=== PATIENT | male | born 1950 | race Caucasian/White ===

== ENCOUNTER 2016-02-22 09:41 | Outpatient (CLI) | payer MEDICAID, SELFPAY ==
--- NOTE | 2016-02-12 10:33 | RAD_ITS ---
STUDY: X-RAY CHEST REASON FOR EXAM: Male, 65 years old. Pacemaker in situ. TECHNIQUE: PA and lateral views of the chest. COMPARISON: None. FINDINGS: There is a left-sided cardiac pacemaker with its leads overlying the right atrium and right ventricle. There is no pneumothorax. The lungs are mildly hyperexpanded. There is no focal mass or infiltrate. There is no demonstrated pleural abnormality. Normal size heart. Normal mediastinum and leonora. Normal visualized pulmonary arteries. There is mild atherosclerotic calcification of the aortic arch with tortuosity. There are diffuse degenerative changes of the visualized thoracic spine. Normal visualized ribs, clavicles, and shoulders. There is no demonstrated abnormality of the visualized soft tissue structures of the upper abdomen. RAD/Chest PA and Lateral IMPRESSION: 1. Left-sided cardiac pacemaker without pneumothorax. 2. No acute cardiopulmonary disease. Electronically Signed: Bill Kincaid DO at 11:07 EST Tel [phone], Service support [phone],
[2016-02-12 11:50] LABS: Hemoglobin 15.5 g/dl (13.0-16.5); Mean Corp Hgb Conc 33.7 g/gl (32-36); Mean Platelet Vol. 11.5 fl (6.2-12.0); Platelet Count 221 K/mm3 (150-450); RBC Distribution Width CV 13.6 % (11.6-14.6); RBC Distribution Width SD 46.1 fl (35.1-43.9)
[2016-02-12 11:57] LABS: Scan Indicated on CBC? Y/N NO
[2016-02-12 11:58] LABS: Color, Urine Yellow (Yellow); Glucose, Dipstick 1000 mg/dl (Normal); Ketone-Dipstick Negative (Negative); Leukocyte Esterase-Dipstick Negative /ul (Negative); Nitrite-Dipstick Negative (Negative); Occult Blood-Urine Negative /ul (Negative); Protein-Dipstick Negative (Negative); Specific Gravity, Urine 1.015 (1.002-1.030); Urine Bilirubin Dipstick Negative (Negative); Urine Clarity Clear (Clear); Urine Urobilinogen Normal (Normal)
[2016-02-12 12:12] LABS: Prothrombin Time (Protime)PT. 34.2 SECONDS (11.7-14.9)
[2016-02-12 12:15] LABS: International Normalized Ratio 3.5
[2016-02-12 12:57] LABS: Anion Gap 6 (5-15); BUN 15 mg/dL (7-18); BUN/Creat Ratio 13.8 RATIO (10-20); Chloride 99 mmol/L (98-107); Creatinine, Serum 1.09 mg/dL (0.70-1.30); EST Glomerular Filtration Rate 72 mL/min (>60); Est Glom Filt Rate - Afr Amer 88 mL/min (>60); Glucose 234 mg/dL (70-110); Potassium 4.6 mmol/L (3.5-5.1); Sodium Level 135 mmol/L (136-145)
[2016-02-19 13:53] VITALS: BMI 28.3
[2016-02-22 10:19] LABS: Prothrombin Time Fingerstick 11.9 SEC (11.9-14.4)
--- NOTE | 2016-02-22 20:24 | OP_ITS ---
DATE OF SERVICE: 02/22/2016 PROCEDURE: Pacemaker generator change out. INDICATIONS: Sick sinus syndrome, end of life replacement index. The patient is a 65-year-old man with a history of pacemaker implantation, currently at end of life index. DESCRIPTION OF PROCEDURE: The patient was brought to the cardiac catheterization lab in the postabsorptive nonsedated state. The left chest was prepped and draped in the usual sterile fashion. The patient was administered 2 g intravenous Ancef. A 1-inch incision was made over the old pacemaker generator and using sharp and blunt dissection, the old pacemaker generator was explanted. The leads were sequentially tested. The right atrial lead was Medtronic model #499511, serial #[id number]. The P-wave was approximately 5 millivolts, impedance of 534 ohms and voltage of 0.5 volts. The right ventricular lead was a Medtronic [id number] serial #[id number]. R waves were 18.4, impedance of 623 ohms and threshold was 0.9 volts and a pulse width of 0.5 milliseconds. The new pacemaker generator was Versa, serial #[id number] [employer], it was connected, the set screws were tightened and the entire device was placed in the pocket after it had been flushed with Ancef solution. The wound was then closed in 2 layers with 3-0 Vicryl and 4-0 Vicryl. The patient tolerated the procedure well. Kobe Henao MD T: NTS JOB: [id number]
== END 2016-02-22 14:40 | disposition home or self-care (01) ==
PROVIDERS: Visit Provider Internal Medicine Cardiovascular Disease
DX: Z45.010 Encounter for checking and testing of cardiac pacemaker pulse generator [battery] (principal); I49.5 Sick sinus syndrome; I47.1 Supraventricular tachycardia; I47.2 Ventricular tachycardia; I25.10 Atherosclerotic heart disease of native coronary artery without angina pectoris; E11.65 Type 2 diabetes mellitus with hyperglycemia; I10 Essential (primary) hypertension; E78.5 Hyperlipidemia, unspecified; F17.200 Nicotine dependence, unspecified, uncomplicated; Z86.718 Personal history of other venous thrombosis and embolism; Z79.82 Long term (current) use of aspirin; Z79.01 Long term (current) use of anticoagulants; Z79.899 Other long term (current) drug therapy
CPT/HCPCS: 33228; 36415; 36416; 71020; 80048; 81002; 85027; 85610; 99152; 99153; J7040; J7050

== ENCOUNTER 2018-05-22 20:18 | Emergency (ER) | payer MEDICARE, MEDICAID, SELFPAY ==
[2018-05-22 20:19] VITALS: BP 131/73; PULSE 127; RESP 18; TEMP 36.5; O2SAT 94; BMI 24.7
[2018-05-22 21:36] VITALS: TEMP 36.5
--- NOTE | 2018-05-22 21:55 | RAD_ITS ---
STUDY: X-RAY CHEST REASON FOR EXAM: Male, 67 years old. Chest pain. Tachycardia. TECHNIQUE: Single AP portable view of the chest. COMPARISON: February 12, 2016. FINDINGS: Telemetry wires overlie the chest. The lungs are clear and expanded. There is no demonstrated pleural abnormality. Normal size heart. Stable cardiac pacemaker. Normal mediastinum and leonora. Normal visualized pulmonary arteries. Normal visualized aortic arch and descending thoracic aorta. The thoracic spine is obscured by the mediastinum. There is degenerative osteoarthritis of the bilateral shoulders. There is no demonstrated abnormality of the visualized soft tissue structures of the upper abdomen. RAD/Chest 1 View (Portable) IMPRESSION: Cardiac pacemaker without acute cardiopulmonary disease or major interval change. Electronically Signed: Bill Kincaid DO at 22:09 EDT Tel [phone], Service support ,
--- NOTE | 2018-05-22 21:55 | EKG12_ITS ---
Test Reason : Blood Pressure : / mmHG Vent. Rate : 081 BPM Atrial Rate : 081 BPM P-R Int : 168 ms QRS Dur : 076 ms QT Int : 362 ms P-R-T Axes : 083 052 069 degrees QTc Int : 420 ms Normal sinus rhythm Normal ECG Confirmed by ANUPAM JOYCE, ERASTO ([id number]), television news video editor MANUEL STRATTON ([id number]) on 05/24/2018 9:30:35 AM Referred By: TARIK Confirmed By:ERASTO BO MD
[2018-05-22 22:08] VITALS: BP 132/98; PULSE 80; RESP 20; TEMP 36.5; O2SAT 93
[2018-05-22] MEDS: 0.9% Normal Saline 1,000 ML 150 ML IV (22:10)
[2018-05-22 22:20] LABS: Absolute Lymphocyte Count 3.13 X10^3/ul (0.83-4.51); Absolute Neutrophil Count 8.4 X10^3/uL (2.0-7.7); Basophil# 0.04 X10^3/uL; Basophil% 0.3 % (0-1); Eosinophil# 0.23 X10^3/uL; Eosinophils% 1.8 % (0-5); Hematocrit 37.4 % (40-54); Hemoglobin 13.2 g/dl (13.0-16.5); Lymphocyte # 3.13 X10^3/ul (4.0); Lymphocyte % 23.9 % (19-41); Mean Corp Hgb Conc 35.3 g/gl (32-36); Mean Corpuscular Hgb 30.3 pg (27.0-32.0); Mean Corpuscular Volume 85.8 fL (80-94); Mean Platelet Vol. 11.1 fl (6.2-12.0); Monocyte# 1.21 X10^3/uL; Monocyte% 9.2 % (0-10); Neutrophil # 8.43 X10^3/uL (2.7-7.7); Neutrophil % 64.4 % (47-70); Platelet Count 307 K/mm3 (150-450); RBC Distribution Width CV 13.2 % (11.6-14.6); RBC Distribution Width SD 40.8 fl (35.1-43.9); Red Blood Count 4.36 M/mm3 (4.6-6.2); White Blood Count 13.1 K/mm3 (4.4-11.0)
[2018-05-22 22:24] LABS: International Normalized Ratio 1.5; Prothrombin Time (Protime)PT. 17.6 SECONDS (11.7-14.9)
[2018-05-22 22:28] LABS: POSITIVE COUNT NO; POSITIVE DIFFERENTIAL NO; POSITIVE MORPHOLOGY NO
[2018-05-22 22:29] LABS: Anion Gap 6 (5-15); BUN 28 mg/dL (7-18); BUN/Creat Ratio 14.7 RATIO (10-20); Calcium,Total 9.8 mg/dL (8.5-10.1); Chloride 100 mmol/L (98-107); Creatinine, Serum 1.91 mg/dL (0.70-1.30); D-Dimer Quantitative (DVT/PE) 0.31 FEU/ug/m (0.27-0.49); EST Glomerular Filtration Rate 38 mL/min (>60); Est Glom Filt Rate - Afr Amer 46 mL/min (>60); Estimated Creatinine Clearance 38.04 ml/min; Glucose 130 mg/dL (74-106); Potassium 4.4 mmol/L (3.5-5.1); Sodium Level 133 mmol/L (136-145)
--- NOTE | 2018-05-22 22:55 | ED.VISSUMM ---
- ER Visit Summary Date of Service: 05/22/18 Chief Complaint: Tachycardia History of Present Illness: The patient is a 67 M who went to his PCP today for routine visit. Heart rate was noted to be in the 120s. Patient denies chest pain, palpitations, or shortness of breath. He does have a history of sick sinus syndrome and has a pacemaker. 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 Patient has not taken his evening dose of medications. Physical Examination: Vital signs significant for heart rate of 127 in triage. At the time of my examination heart rate is 85. Patient sitting upright in bed no acute distress. He has no complaints. Heart is regular rate and rhythm. Lung sounds are clear. Abdomen is soft nontender. Extremity examination reveals ecchymosis/contusion of the right posterior calf. No focal tenderness noted. Test Results: EKG is sinus 81 with no acute ischemia. I did review EKG from the office and it was sinus tachycardia. CBC was a white count of 13.1. Chemistry studies reveal a BUN of 28 and creatinine 1.91. Last labs I have to compare to work from a year and a half ago at which point creatinine was normal. INR subtherapeutic at 1.5. Troponin is negative. D-dimer is negative at 0.31. Chest x-ray reveals pacemaker in place with no interval change. Emergency Department Course and Treatment: On repeat evaluation patient is sleeping comfortably. Heart rate remains in the 80s. He will take increased dose of Coumadin tonight and tomorrow and have his INR rechecked next week. He is to follow-up with his primary care physician. Treatment Plan: [] Disposition: Discharge Impression: 1. Tachycardia, improved 2. Subtherapeutic INR This note was generated with [employer] dictation software. It may contain incorrect words, spelling, and punctuation that were not noted in review of the chart prior to signing ED Disposition - Plan for ED Patient: Disposition: Home or Assisted Living Instructions: ED Palpitations Referrals: Jordy Garcia MD [Primary Care Provider] - 1 Week Additional Instructions: Take increased dose of Coumadin tonight and tomorrow as discussed.
[2018-05-22 23:17] VITALS: BP 128/84; PULSE 84; RESP 15; O2SAT 94
== END 2018-05-22 23:18 | disposition home or self-care (01) ==
PROVIDERS: Emergency Provider Emergency Medicine; Family Provider Family Medicine; PCP Family Medicine
DX: R00.0 Tachycardia, unspecified (principal); I49.5 Sick sinus syndrome; Z95.0 Presence of cardiac pacemaker; Z86.718 Personal history of other venous thrombosis and embolism; Z79.01 Long term (current) use of anticoagulants; Z79.82 Long term (current) use of aspirin; Z79.899 Other long term (current) drug therapy
CPT/HCPCS: 71045; 80048; 84484; 85025; 85379; 85610; 93005; 96360; 99284; J7030